=== PATIENT | female | born 1960 | race Caucasian/White ===

== ENCOUNTER → 2016-08-23 | Outpatient (CLI) | payer BC ==
[~2016-08-23] MED LIST: NS 100 ML IV 100 ML IV ONE
[2016-08-23 09:15] LABS: CREATININE 0.96 mg/dL (0.55-1.02)
--- NOTE | 2016-08-23 11:29 | CT ---
CT NECK WITH IV CONTRAST CLINICAL INDICATION: Nontoxic goiter. Hypothyroidism. TECHNIQUE: Multiple-row detector helical CT examination of the neck with IV contrast per standard d epartmental protocol.Dose reduction techniques including Automated Exposure Control (AEC) and adjust ment of mA and kV were utlized. COMPARISON: None. FINDINGS: The aerodigestive structures are within normal limits. Specifically, the nasal cavity, nasopharynx, oral cavity, oropharynx, hypopharynx, larynx, and visualized trachea and esophagus demonstrate no m asses or abnormal enhancement. No pathologically enlarged, necrotic, or otherwise abnormal lymph nodes. The parotid and submandibular glands appear within normal limits. Multiple calcified and noncalcifie d small thyroid nodules bilaterally. Evaluation of the visualized portions of brain parenchyma and orbits demonstrates no abnormality. Th e visualized paranasal sinuses are predominantly clear. The tympanomastoid cavities are unopacified. There is normal intravascular enhancement. Limited evaluation of the lung apices demonstrates no abnormality. Multilevel degenerative disc dise ase worst at C5-C6 and C6-C7. Following administration of intravenous contrast material, there is no abnormal enhancement. IMPRESSION: 1. Multiple small calcified and noncalcified thyroid nodules. This is a nonspecific finding. It shou ld be noted that the preferred modalities for evaluation of morphology and function of the thyroid g land are ultrasound and scintigraphy respectively. 2. Multilevel degenerative disc disease of the cervical spine. Reported By:
== END ==
LOC: RAD 08:47
PROVIDERS: ATTEND Internal Medicine
DX: E04.0 Nontoxic diffuse goiter (principal); E03.8 Other specified hypothyroidism
CPT/HCPCS: 36415; 70491; 82565; 84520; A4222